=== PATIENT | male | born 1980 | race Caucasian/White ===

== ENCOUNTER → 2020-06-29 | Outpatient (CLI) | payer OTHER | LOC: M LAB 09:32 | PROVIDERS: ATTEND Otolaryngology | DX: H60.01 Abscess of right external ear (principal) ==

== ENCOUNTER 2020-07-01 09:30 | Outpatient (CLI) | payer OTHER ==
[2020-07-01 09:35] VITALS: BP 141/75
[2020-07-01] MEDS ORDERED: VANCOMYCIN HCL 1,000 MG, VIAL MATE ADAPTER 1 EACH in D5W 250 ML IV SCH (10:00)
[2020-07-01] MEDS ORDERED: NORCO, ANEXSIA 5/325MG TABLET (HYDROcodone/ACETAMINOPHEN) PO ONE (11:00)
[2020-07-01 12:00] VITALS: BP 136/74
== END 2020-07-01 12:00 | disposition home or self-care (01) ==
LOC: M INFU 09:30
PROVIDERS: ATTEND Otolaryngology
DX: H60.01 Abscess of right external ear (principal)
CPT/HCPCS: 96365; J3370

== ENCOUNTER 2020-07-01 20:05 | Outpatient (CLI) | payer OTHER ==
[~2020-07-01] VITALS: Ht 182.9 cm; Wt 109.1 kg
[2020-07-01 20:18] VITALS: BP 164/99
[2020-07-01] MEDS ORDERED: VANCOMYCIN HCL 1,000 MG, VIAL MATE ADAPTER 1 EACH in D5W 250 ML IV ONE (21:00)
== END 2020-07-01 22:50 | disposition home or self-care (01) ==
LOC: M INFU 20:05 → M MS5PR 20:09 → M INFU 22:50
PROVIDERS: ATTEND Otolaryngology
DX: H60.01 Abscess of right external ear (principal)
CPT/HCPCS: 96365; 96366; J3370

== ENCOUNTER 2020-07-02 08:07 | Outpatient (CLI) | payer OTHER ==
[2020-07-02 08:30] VITALS: BP 140/104
[2020-07-02] MEDS ORDERED: VANCOMYCIN HCL 1,000 MG, VIAL MATE ADAPTER 1 EACH in D5W 250 ML IV ONE (08:30)
== END 2020-07-02 10:35 | disposition home or self-care (01) ==
LOC: M OPCLI5PR 08:07 → M MS5PR 08:15 → M OPCLI5PR 10:35
PROVIDERS: ATTEND Otolaryngology
DX: H60.01 Abscess of right external ear (principal)
CPT/HCPCS: 96374; J3370

== ENCOUNTER 2020-07-02 19:37 | Outpatient (CLI) | payer OTHER ==
[~2020-07-02] VITALS: Ht 182.9 cm; Wt 109.1 kg
[2020-07-02 20:00] VITALS: BP 138/77
[2020-07-02] MEDS ORDERED: NORCO, ANEXSIA 5/325MG TABLET (HYDROcodone/ACETAMINOPHEN) PO ONE (20:15)
[2020-07-02] MEDS ORDERED: VANCOMYCIN HCL 1,000 MG, VIAL MATE ADAPTER 1 EACH in D5W 250 ML IV ONE (20:15)
== END 2020-07-02 22:09 | disposition home or self-care (01) ==
LOC: M INFU 19:37 → M MS5PR 19:37 → M INFU 22:09
PROVIDERS: ATTEND Otolaryngology
DX: H60.01 Abscess of right external ear (principal)
CPT/HCPCS: 96374; J3370

== ENCOUNTER 2020-07-03 07:29 | Outpatient (CLI) | payer OTHER ==
[2020-07-03 07:45] VITALS: BP 148/96
[2020-07-03] MEDS ORDERED: VANCOMYCIN HCL 1,000 MG, VIAL MATE ADAPTER 1 EACH in D5W 250 ML IV ONE (08:45)
== END 2020-07-03 10:00 ==
LOC: M INFU 07:29 → M MS5PR 07:30 → M INFU 10:00
PROVIDERS: ATTEND Otolaryngology
DX: H60.01 Abscess of right external ear (principal)
CPT/HCPCS: 96365; J3370

== ENCOUNTER 2020-07-03 19:48 | Outpatient (CLI) | payer OTHER ==
[~2020-07-03] VITALS: Ht 182.9 cm; Wt 109.0 kg
[2020-07-03] MEDS ORDERED: VANCOMYCIN HCL 1,000 MG, VIAL MATE ADAPTER 1 EACH in D5W 250 ML IV ONE (20:30)
[2020-07-03 20:48] VITALS: BP 136/72
[2020-07-03 21:59] VITALS: BP 162/91
== END 2020-07-03 22:00 | disposition home or self-care (01) ==
LOC: M INFU 19:48 → M MS5PR 19:50 → M INFU 22:00
PROVIDERS: ATTEND Otolaryngology
DX: H60.01 Abscess of right external ear (principal)
CPT/HCPCS: 96374; J3370